=== PATIENT | male | born 1995 | race African-American/Black ===

== ENCOUNTER 2022-03-31 15:45 | Emergency (ER) | payer OTHER ==
[2022-03-31] MEDS ORDERED: hydrOXYzine 25 MG TAB ONE (16:31)
== END 2022-03-31 16:31 | disposition home or self-care (01) ==
LOC: CSHERS 15:45
DX: F41.8 Other specified anxiety disorders (principal); F17.200 Nicotine dependence, unspecified, uncomplicated; B20 Human immunodeficiency virus [HIV] disease; F25.9 Schizoaffective disorder, unspecified
CPT/HCPCS: 99283